=== PATIENT | male | born 1990 | race Hispanic/Latino ===

== ENCOUNTER 2022-05-21 20:39 | Emergency (ER) | payer BC, OTHER ==
[~2022-05-21] VITALS: Ht 180.3 cm; Wt 121.6 kg
[2022-05-21] MEDS ORDERED: AMOX TR-K CLV1 EAC2 PO (21:41)
[2022-05-21] MEDS ORDERED: CORTISPORIN-TC10 M1 LEFT EAR (21:44)
[2022-05-21] MEDS ORDERED: IBUPROFEN600 MG PO (21:45)
[2022-05-21 21:57] VITALS: BP 130/78
== END 2022-05-21 21:57 | disposition home or self-care (01) ==
LOC: FSED 20:56
DX: H60.92 Unspecified otitis externa, left ear (principal)
CPT/HCPCS: 99282